=== PATIENT | female | born 1970 | race Caucasian/White ===

== ENCOUNTER 2022-01-31 12:12 | Observation (INO) ==
[2022-01-31] MEDS ORDERED: *HR* HYDROmorphone 2 MG TABLET PO PRN (12:34)
[2022-01-31] MEDS ORDERED: Famotidine 20 MG/2 ML VIAL IVP ONE (12:34)
[2022-01-31] MEDS ORDERED: Pregabalin 75 MG CAPSULE PO ONE (12:34)
[2022-01-31] MEDS ORDERED: *HR* Labetalol 20 MG/4 ML SYRINGE IVP PRN (12:34)
[2022-01-31] MEDS ORDERED: Scopolamine Patch 1.5 MG PATCH.TD72 TD ONE (12:34)
[2022-01-31] MEDS ORDERED: *HR* OxyCODONE Immed Rel 5 MG TABLET PO PRN (12:34)
[2022-01-31] MEDS ORDERED: Acetaminophen IV 1,000 MG/100 ML BAG IVPB ONE (12:34)
[2022-01-31] MEDS ORDERED: Ondansetron 4 MG/2 ML VIAL IVP PRN ×2 (12:34→18:11)
[2022-01-31] MEDS ORDERED: CeFAZolin Syr 2,000MG/20 ML 2,000 MG/20 ML SYRINGE IVPB ONE (12:38)
[2022-01-31] MEDS ORDERED: Ringers Solution, Lactated 1,000 ML IVC SCH (12:45)
[2022-01-31] MEDS ORDERED: *HR* FentaNYL (PF) 100 MCG/2 ML VIAL ONE (13:41)
[2022-01-31] MEDS ORDERED: *HR* Remifentanil 1 MG VIAL IVP ONE ×2 (13:41→15:38)
[2022-01-31] MEDS ORDERED: *HR* Midazolam HCl 2 MG/2 ML VIAL ONE (13:41)
[2022-01-31] MEDS ORDERED: *HR* Succinylcholine 200 MG/10 ML VIAL IVP ONE (13:42)
[2022-01-31] MEDS ORDERED: Lidocaine -MPF 2% 5 ML VIAL ONE (13:42)
[2022-01-31] MEDS ORDERED: Lidocaine -MPF 4% 5 ML AMPUL ONE (13:42)
[2022-01-31] MEDS ORDERED: Ondansetron 4 MG/2 ML VIAL ONE (13:42)
[2022-01-31] MEDS ORDERED: *HR* Propofol 200 MG/20 ML VIAL IVP ONE (13:42)
[2022-01-31] MEDS ORDERED: *HR* Rocuronium Bromide 50 MG/5 ML VIAL ONE (13:42)
[2022-01-31] MEDS ORDERED: Lidocaine/EPI 1:100k 1% 20 ML VIAL ONE (13:54)
[2022-01-31] MEDS ORDERED: *HR* Vasopressin 20 UNIT/ML VIAL ONE (14:01)
[2022-01-31 14:09] LABS: Basophils % 0.5 %; Eosinophils # 0.2 K/mcL (0.0-0.6); Eosinophils % 4.3 %; Hematocrit 39.1 % (35.3-44.9); Hemoglobin 13.2 g/dL (11.5-15.4); Immature Granulocytes % 0.5 % (0-4); Lymphocytes # 1.1 K/mcL (0.6-4.6); Lymphocytes % 27.3 %; Mean Corpuscular HGB Conc 33.8 g/dL (31.6-35.5); Mean Corpuscular Hemoglobin 27.2 pg (28.0-33.3); Mean Corpuscular Volume 80.5 fL (83.0-100.0); Mean Platelet Volume 8.7 fL (9.4-12.4); Monocytes # 0.2 K/mcL (0.0-1.3); Monocytes % 4.8 %; Neutrophils # 2.5 K/mcL (1.6-8.9); Platelet Count 110 K/mcL (140-400); Red Blood Count 4.86 M/mcL (3.82-4.97); Red Cell Distribution Width 13.4 % (11.5-14.5); Segmented Neutrophils % 62.6 %
[2022-01-31 14:30] LABS: Magnesium 1.7 mg/dL (1.6-2.6); Phosphorous 3.2 mg/dL (2.7-4.5)
[2022-01-31 14:30] LABS: BUN/Creatinine Ratio 9 (6-26); Blood Urea Nitrogen 7 mg/dL (6-20); Calcium 9.2 mg/dL (8.6-10.3); Carbon Dioxide 31 mEq/L (23-29); Chloride 100 mEq/L (98-107); Glucose 151 mg/dL (70-105); Osmolality,Calculated 283 (280-300); Potassium 3.9 mEq/L (3.5-5.1); Sodium 136 mEq/L (136-145); eGFR For African Americans > 60 (> 60); eGFR For Non-African Americans > 60 (> 60)
[2022-01-31] MEDS ORDERED: *HR* Phenylephrine 10 MG/ML VIAL ONE (14:46)
[2022-01-31] MEDS ORDERED: *HR* HYDROMORPHONE 2 MG/ML VIAL ONE (15:58)
[2022-01-31] MEDS ORDERED: Ketamine HCL *QUVA* 50mg (1mL) SYRINGE ONE (15:58)
[2022-01-31] MEDS ORDERED: Sugammadex Sodium 200 MG/2 ML VIAL IV ONE (16:46)
[2022-01-31] MEDS ORDERED: flumazeniL 0.5 MG/5 ML VIAL IVP ONE (16:48)
[2022-01-31] MEDS ORDERED: Naloxone 0.4 MG/ML INJ ONE (16:48)
[2022-01-31] MEDS ORDERED: *HR* Labetalol 20 MG/4 ML SYRINGE IVP ONE (16:51)
[2022-01-31] MEDS: *HR* HYDROmorphone (PF) 1 MG/ML SYRINGE IVP PRN ×2 (17:22→17:38)
[2022-01-31] MEDS ORDERED: Acetaminophen 325 MG TABLET PO PRN (18:11)
[2022-01-31] MEDS ORDERED: Naloxone 0.4 MG/ML INJ IVP PRN (18:11)
[2022-01-31] MEDS ORDERED: Insulin DETEMIR 100 UNIT/ML X5UNITS SUBQ SCH (21:00)
[2022-01-31] MEDS: Ringers Solution, Lactated 1,000 ML IVC SCH (23:30)
[2022-01-31] MEDS: CeFAZolin 2,000 MG/120 ML BAG IVPB SCH (23:32)
[2022-01-31] MEDS: *HR* HYDROcodone/Acet 5/325 mg TABLET PO PRN (23:54)
[2022-02-01 05:10] VITALS: O2SAT 96
[2022-02-01] MEDS: Ringers Solution, Lactated 1,000 ML IVC SCH (05:39)
[2022-02-01] MEDS: *HR* HYDROcodone/Acet 5/325 mg TABLET PO PRN (07:00)
[2022-02-01] MEDS: CeFAZolin 2,000 MG/120 ML BAG IVPB SCH (08:16)
[2022-02-01] MEDS ORDERED: *HR* Dextrose 50 % in Water (Syg) 50 ML SYRINGE IVP PRN (08:19)
[2022-02-01] MEDS ORDERED: D5% in Water 1,000 ML IVC PRN (08:19)
[2022-02-01] MEDS ORDERED: Dextrose Gel 15 GM/37.5 ML TUBE PO PRN ×2 (08:19)
[2022-02-01] MEDS ORDERED: Insulin LISPRO 300 UNITS/3 ML VIAL SUBQ SCH (08:30)
[2022-02-01] MEDS ORDERED: Fenofibrate 54 MG TABLET PO SCH (09:00)
[2022-02-01] MEDS ORDERED: *HR* LORazepam 1 MG TABLET PO SCH (09:00)
[2022-02-01 10:31] VITALS: BP 131/81; PULSE 64; TEMP 98.2
== END 2022-02-01 12:38 | disposition home or self-care (01) ==
LOC: 3ANU 12:12 → SAMDAY 12:12 → 3ANU 18:10
PROVIDERS: ADMIT Otolaryngology; ATTEND Otolaryngology